=== PATIENT | female | born 1980 ===

== ENCOUNTER → 2018-11-06 | Outpatient (REF) ==
--- NOTE | 2018-11-06 14:24 | Diagnostic Imaging Report ---
Indication: Positive TB skin test PA and lateral chest Heart and mediastinum are normal. Lungs are clear. There are no effusions or pneumothoraces. Impression: Negative chest. There is no radiographic evidence for tuberculosis. Dictated by: Dictated on workstation # [id number]
== END | disposition home or self-care (01) ==
LOC: RAD 13:58
PROVIDERS: ATTEND Family Medicine
CPT/HCPCS: 71046